=== PATIENT | female | born 2000 | race Caucasian/White ===

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

== ENCOUNTER 2018-06-12 21:46 | Emergency (ER) | payer SELFPAY ==
[~2018-06-12] VITALS: Ht 154.9 cm; Wt 65.9 kg
[~2018-06-12 21:46] MED LIST changes: +BUSPIRONE5 MG PO; +ZOLOFT 100MG100 MG PO
[2018-06-12] MEDS ORDERED: DEPO-PROVE150 MG/1 M IM (21:58)
[2018-06-12 22:30] LABS: URINE APPEARANCE CLOUDY; URINE BILIRUBIN NEGATIVE (NEGATIVE); URINE BLOOD 250 ery/uL (NEGATIVE); URINE COLOR BLOODY; URINE GLUCOSE NEGATIVE (NEGATIVE); URINE KETONE NEGATIVE (NEGATIVE); URINE LEUKOCYTE ESTERASE 1+ (NEGATIVE); URINE NITRATE NEGATIVE (NEGATIVE); URINE PROTEIN(semi-quant) 1+ mg/dL (NEGATIVE); URINE UROBILINOGEN NORMAL (NORMAL)
[2018-06-12 22:36] LABS: URINE WBC 16-30 /hpf (0-3)
[2018-06-12] MEDS ORDERED: BACTRIM DS TAB1 EACH PO (22:47)
[2018-06-12 22:56] VITALS: BP 113/76
== END 2018-06-12 22:56 | disposition home or self-care (01) ==
LOC: ED 21:46
PROVIDERS: Nurse Practitioner Family
DX: N30.91 Cystitis, unspecified with hematuria (principal); N20.0 Calculus of kidney; Z87.442 Personal history of urinary calculi; Z79.899 Other long term (current) drug therapy

== ENCOUNTER 2018-09-25 19:12 | Emergency (ER) | payer MEDICAID ==
[~2018-09-25] VITALS: Ht 157.5 cm; Wt 63.6 kg
[~2018-09-25 19:12] MED LIST changes: +BACTRIM DS TAB1 EACH PO; +DEPO-PROVE150 MG/1 M IM
[2018-09-25 20:19] VITALS: BP 124/87
== END 2018-09-25 20:19 | disposition home or self-care (01) ==
LOC: ED 19:12
DX: J02.9 Acute pharyngitis, unspecified (principal); J35.1 Hypertrophy of tonsils; R00.0 Tachycardia, unspecified
CPT/HCPCS: J0561

== ENCOUNTER 2018-11-05 09:04 | Emergency (ER) | payer MEDICAID ==
[~2018-11-05] VITALS: Ht 154.9 cm; Wt 63.6 kg
[2018-11-05 09:51] LABS: HEMATOCRIT 43.3 % (35.0-45.0); HEMOGLOBIN 14.6 g/dL (12.0-15.0); MEAN CELL VOLUME 83 fl (78-95); MEAN CORPUSCULAR HEMOGLOBIN 28 pg (26-32); MEAN CORPUSCULAR HGB CONC 34 g/dL (33-37); MEAN PLATELET VOLUME 9.1 fl (7.4-10.4); PLATELET COUNT 225 K/mm3 (130-400); RED BLOOD COUNT 5.21 M/mm3 (4.10-5.30); RED CELL DISTRIBUTION WIDTH 13.2 % (11.5-14.5); WHITE BLOOD COUNT 8.1 K/mm3 (4.8-10.8)
[2018-11-05 10:03] LABS: ALBUMIN 4.4 g/dL (3.5-5.0); CALCIUM 9.5 mg/dL (8.4-10.2); POTASSIUM 3.7 mmol/L (3.6-5.0); TOTAL BILIRUBIN 1.4 mg/dL (0.2-1.3); TOTAL PROTEIN 8.1 g/dL (6.3-8.2)
[2018-11-05 10:11] LABS: D-DIMER 0.54 mg/L FEU (0.15-0.50)
[2018-11-05 10:15] LABS: BAND 6 % (0-10); LYMPHOCYTE 23 % (20-51); MONOCYTE 8 % (1-10); NEUTROPHILS 61 % (42-75)
[2018-11-05 10:22] LABS: URINE APPEARANCE CLOUDY; URINE BILIRUBIN NEGATIVE (NEGATIVE); URINE BLOOD 250 ery/uL (NEGATIVE); URINE COLOR YELLOW; URINE GLUCOSE NEGATIVE (NEGATIVE); URINE KETONE NEGATIVE (NEGATIVE); URINE LEUKOCYTE ESTERASE NEGATIVE (NEGATIVE); URINE MUCUS PRESENT (NOT PRESENT); URINE NITRATE NEGATIVE (NEGATIVE); URINE PROTEIN(semi-quant) TRACE mg/dL (NEGATIVE); URINE UROBILINOGEN NORMAL (NORMAL)
[2018-11-05] MEDS ORDERED: BACTRIM DS TAB1 EACH PO (12:32)
[2018-11-05 12:45] VITALS: BP 139/72
== END 2018-11-05 12:45 | disposition home or self-care (01) ==
LOC: ED 09:04
PROVIDERS: Nurse Practitioner
DX: R55 Syncope and collapse (principal); N30.00 Acute cystitis without hematuria; F41.9 Anxiety disorder, unspecified; R00.0 Tachycardia, unspecified; F32.9 Major depressive disorder, single episode, unspecified; Z86.79 Personal history of other diseases of the circulatory system
CPT/HCPCS: Q9967

== ENCOUNTER → 2019-11-28 | Outpatient (CLI) | payer MEDICAID ==
[2019-11-29 16:20] LABS: SYPHILIS AB SCREEN w REFLEX Negative (Negative)
== END ==
LOC: LAB 19:34
PROVIDERS: Nurse Practitioner Family
DX: N30.00 Acute cystitis without hematuria (principal); Z20.2 Contact with and (suspected) exposure to infections with a predominantly sexual mode of transmission

== ENCOUNTER → 2020-08-07 | Outpatient (CLI) | payer MEDICAID | LOC: RAD 10:07 | DX: R10.2 Pelvic and perineal pain (principal) ==